=== PATIENT | female | born 1990 | race Caucasian/White ===

== ENCOUNTER 2018-02-07 06:09 | Emergency (ER) | payer SELFPAY ==
[~2018-02-07] VITALS: Ht 162.6 cm; Wt 50.0 kg
[~2018-02-07 06:09] MED LIST: ALBU1AER5 INH; DICY10 PO; MACR100C2 PO
[2018-02-07 06:16] VITALS: BP 116/56; PULSE 97; RESP 18; TEMP 97.1; O2SAT 99
[2018-02-07 06:42] LABS: AUTOMATED NEUTROPHIL # 3.3 TH/MM3 (1.8-7.7); BASOPHIL % 0.3 % (0.0-2.0); EOSINOPHIL # 0.1 TH/MM3 (0-0.4); EOSINOPHIL % 1.2 % (0.0-4.0); HEMATOCRIT 40.9 % (35.0-46.0); HEMOGLOBIN 13.9 GM/DL (11.6-15.3); LYMPH % 34.8 % (9.0-44.0); LYMPHOCYTE # 2.1 TH/MM3 (1.0-4.8); MEAN CELL VOLUME 86.2 FL (80.0-100.0); MEAN CORPUSCULAR HEMOGLOBIN 29.4 PG (27.0-34.0); MEAN PLATELET VOLUME 9.2 FL (7.0-11.0); MONO % 8.8 % (0.0-8.0); MONOCYTE # 0.5 TH/MM3 (0-0.9); NEUT % 54.9 % (16.0-70.0); PLATELET COUNT 268 TH/MM3 (150-450); RED BLOOD COUNT 4.74 MIL/MM3 (4.00-5.30); RED CELL DISTRIBUTION WIDTH 13.4 % (11.6-17.2)
[2018-02-07 07:25] LABS: ALBUMIN 4.3 GM/DL (3.4-5.0); ALT (GPT) 16 U/L (10-53); AST (GOT) 14 U/L (15-37); BICARBONATE 26.5 MEQ/L (21.0-32.0); BLOOD UREA NITROGEN 12 MG/DL (7-18); CALCIUM 9.2 MG/DL (8.5-10.1); CHLORIDE 107 MEQ/L (98-107); CREATININE 0.84 MG/DL (0.50-1.00); GLOMERULAR FILTRATION RATE 81 ML/MIN (>89); GLUCOSE,RANDOM 77 MG/DL (74-106); SODIUM (NA) 140 MEQ/L (136-145)
[2018-02-07 07:28] LABS: ALKALINE PHOSPHATASE 48 U/L (45-117); TOTAL BILIRUBIN ADULT 0.5 MG/DL (0.2-1.0); TOTAL PROTEIN 8.1 GM/DL (6.4-8.2)
[2018-02-07] MEDS ORDERED: KETOROLAC TROMETHAMINE 30 MG/ML (IVP) VIAL IV PUSH ONE (08:15)
[2018-02-07] MEDS ORDERED: SODIUM CHLOR 0.9% 1000 ML INJ 1,000 ML IV ONE (08:15)
--- NOTE | 2018-02-07 08:34 | PD ---
HPI Chief Complaint: Abdominal Pain Time Seen by Provider: 08:13 Travel History International Travel<30 days: No Contact w/Intl Traveler<30days: No Traveled to known affect area: No History of Present Illness HPI Patient is a 27 year old female who comes in complaining of abdominal pain for 7 months. She says she came in today because she thinks that something is "in there." She says she can feel a mass to her RLQ. She is also concerned she has a gallbladder problem. She was here in October and had imaging studies done that showed no cause of her pain. She was advised to follow up with GI, but has not. She denies nausea or vomiting. She reports moving her bowels normally. She denies any urinary symptoms. She denies any vaginal discharge. She has not taken anything at home for pain. Severity is mild to moderate. PFSH Past Medical History Asthma: Yes Cardiovascular Problems: Yes (mitral valve prolapse) Diabetes: No Diminished Hearing: No Immune Disorder: No Respiratory: Yes (asthma) Shingles: Yes Tetanus Vaccination: < 5 Years Influenza Vaccination: No ?: Not LMP: 01/17/18 Menopausal: No : 4 Para: 3 Miscarriage: 1 : 0 Dilation and Curettage (D&C): Yes Tubal Ligation: Yes Past Surgical History Section: Yes (X3) Gynecologic Surgery: Yes Tonsillectomy: Yes Social History Alcohol Use: No Tobacco Use: No Substance Use: No (cocaine- denies) Allergies-Medications (Allergen,Severity, Reaction): Coded Allergies: miconazole (Unverified Allergy, Severe, Rash, 11/03/17) doxycycline (Unverified Adverse Reaction, Unknown, Nausea/Vomiting, ) Reported Meds & Prescriptions Reported Meds & Active Scripts Active Bactrim DS (Sulfamethoxazole-Trimethoprim) 800-160 Mg Tab 1 Tab PO BID Review of Systems Except as stated in HPI: all other systems reviewed are Neg General / Constitutional: No: Fever, Chills HENT: No: Headaches, Lightheadedness Cardiovascular: No: Chest Pain or Discomfort Respiratory: No: Shortness of Breath Gastrointestinal: Positive: Abdominal Pain, No: Diarrhea, Constipation Genitourinary: No: Dysuria, Flank Pain Musculoskeletal: No: Myalgias, Weakness Skin: No Rash, No Change in Pigmentation Neurologic: No: Weakness, Dizziness Physical Exam Narrative GENERAL: Awake and alert, in no acute distress. SKIN: Focused skin assessment warm/dry. HEAD: Atraumatic. Normocephalic. EYES: Pupils equal and round. No scleral icterus. ENT: Mucous membranes pink and moist. NECK: Trachea midline. No JVD. CARDIOVASCULAR: Regular rate and rhythm. No murmur appreciated. RESPIRATORY: No accessory muscle use. Clear to auscultation. Breath sounds equal bilaterally. GASTROINTESTINAL: Abdomen soft, nondistended. Tender to palpation of the RLQ, epigastric area and RUQ. No rebound or guarding. MUSCULOSKELETAL: No obvious deformities. No clubbing. No cyanosis. No edema. NEUROLOGICAL: Awake and alert. No obvious cranial nerve deficits. Motor grossly within normal limits. Normal speech. PSYCHIATRIC: Appropriate mood and affect; insight and judgment normal. Data Data Last Documented VS Vital Signs Date Time Temp Pulse Resp B/P (MAP) Pulse Ox O2 Delivery O2 Flow Rate FiO2 02/07/18 08:55 81 18 112/67 (82) 100 Room Air 02/07/18 06:16 97.1 Orders Orders Complete Blood Count With Diff (02/07/18 06:17) Comprehensive Metabolic Panel (02/07/18 06:17) Urinalysis - C+S If Indicated (02/07/18 06:17) Ed Urine Pregnancytest Poc (02/07/18 06:17) Iv Access Insert/Monitor (02/07/18 06:17) Oxygen Administration (02/07/18 06:17) Oximetry (02/07/18 06:17) Lipase (02/07/18 06:17) Ct Abd/Pel W Iv Contrast(Rout) (02/07/18 ) Us Abdomen Gallbladder (02/07/18 ) Sodium Chlor 0.9% 1000 Ml Inj (Ns 1000 M (02/07/18 08:15) Ketorolac Inj (Toradol Inj) (02/07/18 08:15) Iohexol 350 Inj (Omnipaque 350 Inj) (02/07/18 09:11) Urine Culture (02/07/18 08:32) Mandatory Outpatient Referral (02/07/18 10:44) Ed Discharge Order (02/07/18 10:44) Labs Laboratory Tests Test 02/07/18 06:25 02/07/18 08:32 White Blood Count 6.0 TH/MM3 Red Blood Count 4.74 MIL/MM3 Hemoglobin 13.9 GM/DL Hematocrit 40.9 % Mean Corpuscular Volume 86.2 FL Mean Corpuscular Hemoglobin 29.4 PG Mean Corpuscular Hemoglobin Concent 34.0 % Red Cell Distribution Width 13.4 % Platelet Count 268 TH/MM3 Mean Platelet Volume 9.2 FL Neutrophils (%) (Auto) 54.9 % Lymphocytes (%) (Auto) 34.8 % Monocytes (%) (Auto) 8.8 % Eosinophils (%) (Auto) 1.2 % Basophils (%) (Auto) 0.3 % Neutrophils # (Auto) 3.3 TH/MM3 Lymphocytes # (Auto) 2.1 TH/MM3 Monocytes # (Auto) 0.5 TH/MM3 Eosinophils # (Auto) 0.1 TH/MM3 Basophils # (Auto) 0.0 TH/MM3 CBC Comment DIFF FINAL Differential Comment Blood Urea Nitrogen 12 MG/DL Creatinine 0.84 MG/DL Random Glucose 77 MG/DL Total Protein 8.1 GM/DL Albumin 4.3 GM/DL Calcium Level 9.2 MG/DL Alkaline Phosphatase 48 U/L Aspartate Amino Transf (AST/SGOT) 14 U/L Alanine Aminotransferase (ALT/SGPT) 16 U/L Total Bilirubin 0.5 MG/DL Sodium Level 140 MEQ/L Potassium Level 3.5 MEQ/L Chloride Level 107 MEQ/L Carbon Dioxide Level 26.5 MEQ/L Anion Gap 7 MEQ/L Estimat Glomerular Filtration Rate 81 ML/MIN Lipase 192 U/L Urine Color YELLOW Urine Turbidity HAZY Urine pH 5.0 Urine Specific [place] 1.029 Urine Protein TRACE mg/dL Urine Glucose (UA) NEG mg/dL Urine Ketones NEG mg/dL Urine Occult Blood NEG Urine Nitrite NEG Urine Bilirubin NEG Urine Urobilinogen LESS THAN 2.0 MG/DL Urine Leukocyte Esterase TRACE Urine RBC 9 /hpf Urine WBC 4 /hpf Urine Squamous Epithelial Cells 2 /hpf Urine Calcium Oxalate Crystals MOD /hpf Urine Bacteria MOD /hpf Urine Mucus MANY /lpf Microscopic Urinalysis Comment CULTURE INDICATED MDM Medical Decision Making Medical Screen Exam Complete: Yes Emergency Medical Condition: Yes Medical Record Reviewed: Yes Differential Diagnosis UTI vs pancreatitis vs cholecystitis vs cholelithiasis vs GERD vs gastritis Narrative Course Patient is a 27 year old female who comes in complaining of abdominal pain for 7 months. Exam shows mild tenderness to the epigastric area and RLQ. IV established, labs sent. Labs show no acute abnormalities. Given IVF, Toradol CT abd/pelvis performed shows left ovarian cyst, no other acute abnormalities. Urinalysis positive for bacteria. US gallbladder shows no acute abnormalities. Last 24 hours Impressions Gall Bladder Ultrasound 02/07/18 0000 Signed Impressions: Service Date/Time: Wednesday, February 07, 2018 09:58 - CONCLUSION: No acute disease. Bradley Oshea MD Abdomen/Pelvis CT 02/07/18 0000 Signed Impressions: Service Date/Time: Wednesday, February 07, 2018 09:02 - CONCLUSION: 1. No acute findings. Small left ovarian cyst. No significant change compared with October 2017. Robson Santiago MD Patient informed of the results. Given prescription for Bactrim. Referral placed to GI. Advised to follow up with GI and the [facility]. Advised to return to the ED as needed for any worsening symptoms. Diagnosis Primary Impression: Abdominal pain Qualified Codes: R10.9 - Unspecified abdominal pain Referrals: Marianne Solorio MD call for appointment Patient Instructions: Abdominal Pain (ED), General Instructions Additional Instructions: Take all of your antibiotic. Follow-up with GI. Return to the ED as needed for any worsening symptoms. Scripts Sulfamethoxazole-Trimethoprim (Bactrim DS) 800-160 Mg Tab 1 TAB PO BID for Infection, #6 TAB 0 Refills Prov: Zelda Sommers MD 02/07/18 Disposition: 01 DISCHARGE HOME Condition: Stable Zelda Sommers MD Feb 07, 2018 08:34
[2018-02-07 08:48] VITALS: RESP 18; O2SAT 100
[2018-02-07 08:55] VITALS: BP 112/67; PULSE 81; RESP 18; O2SAT 100
[2018-02-07] MEDS ORDERED: IOHEXOL 350 MG/ML 10 ML VIAL (for RAD DIAG) IVCONTRAST ONE (09:11)
--- NOTE | 2018-02-07 09:24 | RADRPT ---
EXAM DATE/TIME: 02/07/2018 09:02 [facility] COMPARISON: No previous studies available for comparison. INDICATIONS : Right abdominal pain x 7 months. IV CONTRAST: 85 cc Omnipaque 350 (iohexol) IV ORAL CONTRAST: No oral contrast ingested. RADIATION DOSE: 4.51 CTDIvol (mGy) MEDICAL HISTORY : Cardiovascular disease. SURGICAL HISTORY : Tubal ligation. section. ENCOUNTER: Initial ACUITY: 7 - 11 months PAIN SCALE: 5/10 LOCATION: Right lower quadrant TECHNIQUE: Volumetric scanning of the abdomen and pelvis was performed. Using automated exposure control and ad justment of the mA and/or kV according to patient size, radiation dose was kept as low as reasonably achievable to obtain optimal diagnostic quality images. DICOM format image data is available electro nically for review and comparison. FINDINGS: Lung bases are clear. No acute findings in the liver, spleen, adrenals, kidneys or pancreas. No calcified gallstones or biliary ductal dilatation. No free fluid or free air. No adenopathy. Mild constipation. Small left ovarian cyst. CONCLUSION: 1. No acute findings. Small left ovarian cyst. No significant change compared with October 2017. Robson Santiago MD on February 07, 2018 at 9:17 Board Certified Radiologist. This report was verified electronically.
[2018-02-07 09:25] LABS: BACTERIA, URINE MOD /hpf; BILIRUBIN, URINE NEG (NEG); BLOOD, URINE NEG (NEG); CALCIUM OXALATE CRYSTALS,URINE MOD /hpf; GLUCOSE,URINE NEG (NEG); KETONE, URINE NEG (NEG); MUCUS URINE MANY /lpf (OCC); NITRITE,URINE NEG (NEG); SQUAMOUS EPITHELIAL CELL URINE 2 /hpf (0-5); URINE COLOR YELLOW (YELLW/STRAW); URINE LEUKOCYTE ESTERASE TRACE (NEG)
--- NOTE | 2018-02-07 10:20 | RADRPT ---
EXAM DATE/TIME: 02/07/2018 09:58 [facility] COMPARISON: No previous studies available for comparison. INDICATIONS : Right upper quadrant pain. MEDICAL HISTORY : Mitral valve prolapse. Asthma. Shingles. SURGICAL HISTORY : section. Tubal ligation. Tonsillectomy. Dilation and curettage. ENCOUNTER: Initial ACUITY: 7-11 months PAIN SCORE: 5/10 LOCATION: Right upper quadrant MEASUREMENTS: LIVER: 11.7 cm length COMMON DUCT: 2 mm RIGHT KIDNEY: 11.0 x 4.3 x 4.4 cm FINDINGS: LIVER: Normal echotexture without focal lesion or ductal dilatation. COMMON DUCT: No intraluminal mass or stone visualized. GALLBLADDER: Contains no stones, demonstrates no wall thickening or pericholecystic fluid. PANCREAS: The visualized portions are within normal limits. RIGHT KIDNEY: No evidence of hydronephrosis, stone, or mass. CONCLUSION: No acute disease. Bradley Oshea MD on February 07, 2018 at 10:18 Board Certified Radiologist. This report was verified electronically.
[2018-02-07] MEDS ORDERED: BACT800T5 PO (10:44)
== END 2018-02-07 11:11 | disposition home or self-care (01) ==
LOC: NEPE 06:09
DX: R10.9 Unspecified abdominal pain (principal); N83.202 Unspecified ovarian cyst, left side
CPT/HCPCS: 74177; 76705; 80053; 81001; 83690; 84703; 85025; 87086; 96374; 99285; J1885; J7030; Q9967

== ENCOUNTER 2018-02-21 09:35 | Emergency (ER) | payer SELFPAY ==
[~2018-02-21 09:35] MED LIST changes: -ALBU1AER5 INH; +BACT800T5 PO; -DICY10 PO; -MACR100C2 PO
[2018-02-21 09:46] VITALS: BP 123/70; PULSE 103; RESP 16; TEMP 98.3; O2SAT 99
--- NOTE | 2018-02-21 10:26 | PD ---
HPI Chief Complaint: GI Complaint Time Seen by Provider: 09:57 Travel History International Travel<30 days: No Contact w/Intl Traveler<30days: No Traveled to known affect area: No History of Present Illness HPI The patient was seen and examined in the presence of the nurse. This patient complains of right lower quadrant pain. She's had pain there every day for the last 7 months. She denies fever. She says she hasn't urinated in 24 hours. Symptoms severity is moderate. She is crying profuse tears and looks depressed. She says she is asthmatic and smokes crack cocaine everyday. Denies feeling suicidal. PFSH Past Medical History Asthma: Yes Cardiovascular Problems: Yes (mitral valve prolapse) Diabetes: No Diminished Hearing: No Immune Disorder: No Respiratory: Yes (asthma) Shingles: Yes Menopausal: No : 4 Para: 3 Miscarriage: 1 : 0 Dilation and Curettage (D&C): Yes Tubal Ligation: Yes Past Surgical History Section: Yes (X3) Gynecologic Surgery: Yes Tonsillectomy: Yes Social History Alcohol Use: No Tobacco Use: No Substance Use: Yes (Pt admits to daily coccaine use) Allergies-Medications (Allergen,Severity, Reaction): Coded Allergies: miconazole (Unverified Allergy, Severe, Rash, 11/03/17) doxycycline (Unverified Adverse Reaction, Unknown, Nausea/Vomiting, ) Reported Meds & Prescriptions Reported Meds & Active Scripts Active Bactrim DS (Sulfamethoxazole-Trimethoprim) 800-160 Mg Tab 1 Tab PO BID Review of Systems General / Constitutional: No: Fever Eyes: No: Visual changes HENT: No: Headaches Cardiovascular: No: Chest Pain or Discomfort Respiratory: No: Shortness of Breath Gastrointestinal: Positive: Abdominal Pain Genitourinary: Positive: Decreased Urinary Output, Pelvic Pain, No: Dysuria Musculoskeletal: No: Pain Skin: No Rash Neurologic: No: Weakness Psychiatric: Positive: Substance Abuse, No: Depression Endocrine: No: Polydipsia Hematologic/Lymphatic: No: Easy Bruising Physical Exam Narrative GENERAL: Well-nourished, well-developed patient in no apparent distress. SKIN: Focused skin assessment reveals no rash and nodules. Skin is Warm and dry. HEAD: Atraumatic. Normocephalic. EYES: Pupils equal and round. No scleral icterus. No injection or drainage. ENT: No nasal bleeding or discharge. Mucous membranes pink and moist. NECK: Trachea midline. No JVD. CARDIOVASCULAR: Regular rate and rhythm. No murmur appreciated. RESPIRATORY: No accessory muscle use. Clear to auscultation. Breath sounds equal bilaterally. GASTROINTESTINAL: Abdomen soft, right lower quadrant is tender without rebound or guarding , nondistended. Hepatic and splenic margins not palpable. MUSCULOSKELETAL: No obvious deformities. No clubbing. No cyanosis. No edema. NEUROLOGICAL: Awake and alert. No obvious cranial nerve deficits. Motor grossly within normal limits. Normal speech. PSYCHIATRIC: Depressed mood and affect; insight and judgment poor . Data Data Last Documented VS Vital Signs Date Time Temp Pulse Resp B/P (MAP) Pulse Ox O2 Delivery O2 Flow Rate FiO2 02/21/18 09:46 98.3 103 16 123/70 (87) 99 MDM Medical Decision Making Medical Screen Exam Complete: Yes Emergency Medical Condition: Yes Medical Record Reviewed: Yes Differential Diagnosis Ectopic , colitis, depression Narrative Course I have reviewed the patient's electronic medical record. She has had 3 CT scans in last 6 months, all negative for emergent problem I recommended starting with IV placement and lab studies as well as catheterized urine to assess for urinary retention and evaluate urine and rule out Patient refused any of the above and is signing out AGAINST MEDICAL ADVICE. She did go to [facility] yesterday and was seen there by the physician Hopefully she will reconnect with his physician and get evaluations regularly and some [facility] drug rehabilitation services are recommended Diagnosis Primary Impression: Abdominal pain, chronic, right lower quadrant Additional Impression: Cocaine abuse Disposition: 07 AGAINST MEDICAL ADVICE Rajat Crain MD Feb 21, 2018 10:26
== END 2018-02-21 10:22 | disposition left against medical advice (07) ==
LOC: NEPD 09:35
DX: R10.31 Right lower quadrant pain (principal); G89.29 Other chronic pain; F14.10 Cocaine abuse, uncomplicated; J45.909 Unspecified asthma, uncomplicated
CPT/HCPCS: 99281